=== PATIENT | male | born 1970 | race Two or more races ===

== ENCOUNTER 2025-05-26 11:37 | Inpatient (IN) | payer SELFPAY ==
[~2025-05-26] VITALS: Ht 170.2 cm; Wt 75.4 kg
[2025-05-26] VITALS (8 sets, daily range): BP systolic 117–130; BP diastolic 73–81; PULSE 61–84; RESP 14–18; TEMP 97.8–98.9; O2SAT 98–100
--- NOTE | 2025-05-26 12:33 | DVH ---
CHEST RADIOGRAPH Indication: weakness Technique: Single frontal view of the chest was obtained Comparison: None FINDINGS: Lines and Tubes: None Lungs: No focal consolidation. Pleura: No effusion. No pneumothorax. Cardiomediastinal contours: Unremarkable. Large hiatal hernia in the retrocardiac area with air-fluid level. Bones: No acute osseous abnormality. IMPRESSION: 1. No acute cardiopulmonary disease. 2. Large air-fluid level in the retrocardiac area most likely hiatal hernia.
--- NOTE | 2025-05-26 12:34 | ED.PDOC ---
History of Present Illness HPI Comments 54 year old male presents to the ED with a chief complaint of generalized weakness onset 1 month. Patient went to urgent care due to generalized weakness for the past month as well as dizziness, shortness of breath, was advised to come to ED due to hemoglobin level of 6. Patient states he experienced melena, now resolved. Denies chest pain, fever, chills, headache, blurred vision, nausea, vomiting, diarrhea, dysuria, hematuria. No other symptoms or modifying factors present at this time. Chief Complaint: General Weakness Time Seen by MD: 12:20 Reviewed Notes: Medications, Allergies Allergies: Coded Allergies: NO KNOWN ALLERGIES (Unverified , 05/26/25) Information Source: Patient Mode of Arrival: Ambulatory Severity: Moderate Timing: Months Duration: Since onset Prehospital treatment: None Past Medical History PAST MEDICAL HISTORY: Denies Surgical History: Denies all surgeries Family History Family History: Reviewed,noncontributory to illness, No family hx of Cancer, No family hx of DM, No family hx of Heart breanne, No family hx of HTN, No family hx ofKidney breanne, No family hx of Liver breanne, No family hx of Lung breanne, No family hx of Stroke Social History Smoker: Non-Smoker Alcohol: Denies ETOH Use Drugs: Denies Drug Use Lives In: Home Constitutional: reports: weakness; denies: chills, diaphoresis, fatigue, fever, malaise, sweats, others EENTM: denies: blurred vision, double vision, ear bleeding, ear discharge, ear drainage, ear pain, ear ringing, eye pain, eye redness, hearing loss, mouth pain, mouth swelling, nasal discharge, nose bleeding, nose congestion, nose pain, photophobia, tearing, throat pain, throat swelling, voice changes, others Respiratory: denies: cough, hemoptysis, orthopnea, SOB at rest, shortness of breath, SOB with excertion, stridor, wheezing, others Cardiovascular: denies: chest pain, dizzy spells, diaphoresis, Dyspnea on exertion, edema, irregular heart beat, left arm pain, lightheadedness, palpitations, PND, syncope, others Gastrointestinal: reports: melena; denies: abdomen distended, abdominal pain, blood streaked bowels, constipated, diarrhea, dysphagia, difficulty swallowing, hematemesis, nausea, poor appetite, poor fluid intake, rectal bleeding, rectal pain, vomiting, others Genitourinary: denies: burning, dysuria, flank pain, frequency, hematuria, incontinence, penile discharge, penile sore, pain, testicle pain, testicle swelling, urgency, others Neurological: reports: weakness; denies: dizziness, fainting, headache, left s ided numbness, left sided weakness, numbness, paresthesia, pre-existing deficit, right sided numbness, right sided weakness, seizure, speech problems, tingling, tremors, others Musculoskeletal: denies: back pain, gout, joint pain, joint swelling, muscle pain, muscle stiffness, neck pain, others Integumetry: denies: bruises, change in color, change in hair/nails, dryness, laceration, lesions, lumps, rash, wounds, others Allergic/Immunocompromised: denies: Difficulty Healing, Frequent Infections, Hives, Itching, others Hematologic/Lymphatic: denies: anemia, blood clots, easy bleeding, easy bruising, swollen glands, others Endocrine: denies: excessive hunger, excessive sweating, excessive thirst, excessive urination, flushing, intolerance to cold, intolerance to heat, unexplained weight gain, unexplained weight loss, others Psychiatric: denies: anxiety, bipolar disorder, depression, hopeless, panic disorder, schizophrenia, sleepless, suicidal, others All Other Systems: Reviewed and Negative Physical Exam General Appearance: No Apparent Distress, Normal HEENT: Normal ENT Inspection, Pharynx Normal, TMs Normal Neck: Full Range of Motion, Non-Tender, Normal, Normal Inspection Respiratory: Chest Non-Tender, Lungs Clear, No Accessory Muscle Use, No Respiratory Distress, Normal Breath Sounds Cardiovascular: No Edema, No JVD, No Murmur, No Gallop, Normal Peripheral Pulses, Regular Rate/Rhythm Breast Exam: Deferred Gastrointestinal: No Organomegaly, Non Tender, No Pulsatile Mass, Normal Bowel Sounds, Soft Genitalia: Deferred Pelvic: Deferred Rectal: Deferred Extremities: No calf tenderness, Normal capillary refill, Normal inspection, Normal range of motion, Non-tender, No pedal edema Musculoskeletal : Apperance: Normal Neurologic: Alert, technical marketing consultant II-XII nml as Tested, No Motor Deficits, Normal Affect, Normal Mood, No Sensory Deficits Cerebellar Function: Normal Reflexes: Normal Skin: Dry, Normal Color, Warm Lymphatic: No Adenopathy Was a procedure done? Was a procedure done?: No Differential Dx Considerations may include: ACS, CVA, viral syndrome, electrolyte abnormality, infectious etiology, symptomatic anemia X-Ray, Labs, Meds, VS Vital Signs Date Time Temp Pulse Resp B/P (MAP) Pulse Ox O2 Delivery O2 Flow Rate FiO2 05/26/25 13:00 71 16 135/80 (98) 100 05/26/25 13:00 71 16 100 Room Air* 0 21 05/26/25 12:26 90 116/80 05/26/25 12:25 87 119/82 05/26/25 12:24 90 18 116/80 (92) 100 05/26/25 12:24 90 18 100 Room Air 05/26/25 11:41 97.8 89 18 117/78 100 97.8 Lab Test 05/26/25 13:23 05/26/25 12:14 Range/Units Troponin I High Sensitivity < 3 L < 3 L </=54 ng/L White Blood Count 6.5 4.4-10.8 10^3/uL Red Blood Count 3.58 L 4.5-5.90 10^6/uL Hemoglobin 5.7 *L 13.5-17.5 g/dL Hematocrit 20.8 L 41.0-53.0 % Mean Corpuscular Volume 58.1 L 80.0-100.0 fL Mean Corpuscular Hemoglobin 15.9 L 28.0-32.0 pg Mean Corpuscular Hemoglobin Concent 27.4 L 32.0-36.0 g/dL Red Cell Distribution Width 20.5 H 11.8-14.3 % Platelet Count 452 H 140-450 10^3/uL Mean Platelet Volume 6.0 L 6.9-10.8 fL Neutrophils (%) (Auto) 64.1 37.0-80.0 % Lymphocytes (%) (Auto) 25.0 10.0-50.0 % Monocytes (%) (Auto) 7.7 0.0-12.0 % Eosinophils (%) (Auto) 1.6 0.0-7.0 % Basophils (%) (Auto) 1.6 0.0-2.0 % Neutrophils # (Auto) 4.2 1.6-8.6 10 ^3/uL Lymphocytes # (Auto) 1.6 0.4-5.4 10 ^3/uL Monocytes # (Auto) 0.5 0-1.3 10 ^3/uL Eosinophils # (Auto) 0.1 0-0.8 10 ^3/uL Basophils # (Auto) 0.1 0-0.2 10 ^3/uL Nucleated Red Blood Cells 0.3 % Platelet Estimate Increased Hypochromasia (manual) Marked Anisocytosis (manual) Slight Microcytosis Marked Sodium Level 139 136-145 mmol/L Potassium Level 4.4 3.5-5.1 mmol/L Chloride Level 105 98-107 mmol/L Carbon Dioxide Level 23 20-31 mmol/L Anion Gap 11 5-15 Blood Urea Nitrogen 18 9-23 mg/dL Creatinine 1.09 0.700-1.30 mg/dL Glomerular Filtration Rate Calc 81 >90 mL/min BUN/Creatinine Ratio 16.5 10.0-20.0 Serum Glucose 106 74-106 mg/dL Calcium Level 8.8 8.7-10.4 mg/dL Time of 1ST Reevaluation: 12:50 Reevaluation 1ST: Unchanged Patient Education/Counseling: Diagnosis, Treatment, Prognosis Family Education/Counseling: No Family Present SEPSIS Sepsis Screen Date sepsis recognized/suspect: May 26, 2025 Time Sepsis recognized/suspect: 1143 Recent Procedure: No On Antibiotic Therapy: No Respiratory Rate >20: No Heart Rate >90: No Temp<36 C (96.8 F) or >38.3 C: No SBP <90 or MAP <65 mmHG: No New Acute Mental Status Change: No Is the patient on CPAP, BIPAP,: No Physician Orders Urinalysis (05/26/25 11:59) Chest Portable (05/26/25 11:59) Electrocardigram (05/26/25 11:59) Troponin-I Hs (05/26/25 14:59) Electrocardigram (05/26/25 12:59) Electrocardigram (05/26/25 14:59) Vital Signs Date Time Temp Pulse Resp B/P (MAP) Pulse Ox O2 Delivery O2 Flow Rate FiO2 05/26/25 13:00 71 16 135/80 (98) 100 05/26/25 13:00 71 16 100 Room Air* 0 21 05/26/25 12:26 90 116/80 05/26/25 12:25 87 119/82 05/26/25 12:24 90 18 116/80 (92) 100 05/26/25 12:24 90 18 100 Room Air 05/26/25 11:41 97.8 89 18 117/78 100 97.8 Laboratory Tests Test 05/26/25 12:14 White Blood Count 6.5 10^3/uL (4.4-10.8) Departure 1 Departure Time of Disposition: 14:11 (Patient with near-syncope likely secondary to low hemoglobin. We will transfuse the patient admit patient for further workup and expert consultation) Impression: Primary Impression: Symptomatic anemia Additional Impression: Near syncope Disposition: ADMITTED INPATIENT Admit to: Tele Condition: Guarded Critical Care Note Critical Care Time?: Yes Critical care comment: Near-syncope and symptomatic anemia Authorized and Performed by: Ronit Bhagat MD Total critical care time: Approximately 37 minutes Due to a high probability of clinically significant, life threatening deterioration, the patient required my highest level of preparedness to intervene emergently and I personally spent this critical care time directly and personally managing the patient. This critical care time included obtaining a history; examining the patient; pulse oximetry; ordering and review of studies; arranging urgent treatment with development of a management plan; evaluation of patient's response to treatment; frequent reassessment; and, discussions with other providers. This critical care time was performed to assess and manage the high probability of imminent, life-threatening deterioration that could result in multi-organ failure. It was exclusive of separately billable procedures and treating other patients and teaching time. Please see my other sections and the rest of the note for further information on patient assessment and treatment. Stability Stability form required: No Heart Score Heart Score: Heart Score Response (Comments) Value History N/A 0 EKG N/A 0 Age N/A 0 Risk Factors N/A 0 Troponin N/A 0 Total 0 I personally scribed for RONIT BHAGAT MD ([email or web address]) on 05/26/25 at 12:34. Electronically submitted by Zofia Bernstein ([email or web address]). RONIT BHAGAT MD May 26, 2025 12:34
[2025-05-26 12:42] LABS: Hematocrit 20.8 % (41.0-53.0); Mean Corpuscular Hemoglobin 15.9 pg (28.0-32.0)
[2025-05-26 12:46] LABS: Chloride 105 mmol/L (98-107); Mean Corpuscular Volume 58.1 fL (80.0-100.0); Nucleated Red Blood Cells % 0.3 %; Potassium 4.4 mmol/L (3.5-5.1); Sodium 139 mmol/L (136-145)
[2025-05-26 12:47] LABS: Anion Gap 11 (5-15); Carbon Dioxide 23 mmol/L (20-31)
[2025-05-26 12:48] LABS: Calcium 8.8 mg/dL (8.7-10.4)
[2025-05-26 12:50] LABS: Hemoglobin 5.7 g/dL (13.5-17.5)
[2025-05-26 12:53] LABS: BUN/Creatinine Ratio 16.5 (10.0-20.0); Blood Urea Nitrogen 18 mg/dL (9-23)
[2025-05-26 12:56] LABS: Glucose 106 mg/dL (74-106)
[2025-05-26 13:10] LABS: Anisocytosis Slight
[2025-05-26] MEDS: IOHEXOL 300 MG/ML 100ML BOTTLE IJ ONE (14:18)
--- NOTE | 2025-05-26 15:12 | DVH ---
EXAM: CT CT AB PEL WITH IV CON ONLY HISTORY: c/f gi bleed TECHNIQUE: Volumetric multidetector CT images of the abdomen and pelvis were obtained after the administration of intravenous contrast. All CT scans at this facility use dose modulation, iterative reconstruction, and/or weight based dosing when appropriate to reduce radiation dose to as low as reasonably achievable. COMPARISON: XY CHEST PORTABLE on DOS: 05/26/25 FINDINGS: [LOWER CHEST]: The partially visualized lung bases are clear without a pleural effusion. [LIVER]: Hepatomegaly. [GALLBLADDER AND BILIARY TREE]: No cholelithiasis. [SPLEEN]: Unremarkable. [PANCREAS]: Unremarkable. [ADRENAL GLANDS]: Unremarkable [KIDNEYS]: No hydronephrosis. No nephroureterolithiasis. No suspicious focal lesion. [BLADDER]: Circumferential bladder wall thickening, which may be seen in the setting of acute versus chronic cystitis and correlate with urinalysis. [REPRODUCTIVE ORGANS]: Unremarkable. [BOWEL/MESENTERY]: Large hiatal hernia. Presumed underlying gastritis. No CT evidence of bowel obstruction. prior appendectomy. Mild stool burden. [ASCITES]: Absent [LYMPHADENOPATHY]: No pathologically enlarged lymph nodes by CT size criteria [VASCULATURE]: No aneurysmal dilatation. [ABDOMINAL WALL]: Unremarkable. [MUSCULOSKELETAL]: No acute fracture or aggressive focal osseous lesion. IMPRESSION: 1. Circumferential bladder wall thickening and correlate with urinalysis for underlying acute versus chronic cystitis. 2. Large hiatal hernia with presumed underlying gastritis.
--- NOTE | 2025-05-26 16:58 | ECG ---
[facility] Test Date: 2025-05-26 Test Time: 15:17:00 Pat Name: RY ARCINIEGA Department: ED Room: Gender: M Crossing Supervisor: dominic : 1970 Requested By: RONIT KAMARA Order Number: [id number] Reading MD: Measurements Intervals [place] Rate: 64 P: 4 SD: 211 QRS: 2 QRSD: 107 T: 14 QT: 441 QTc: 455 Interpretive Statements Sinus rhythm Prolonged SD interval Please click the below link to view image of tracing.
--- NOTE | 2025-05-26 18:44 | ECG ---
[facility] Test Date: 2025-05-26 Test Time: 18:07:04 Pat Name: RY ARCINIEGA Department: ED Room: Gender: M Fashion Stylist: dominic : 1970 Requested By: RONIT KAMARA Order Number: [id number] Reading MD: Measurements Intervals [place] Rate: 72 P: 23 TX: 207 QRS: 2 QRSD: 96 T: 18 QT: 419 QTc: 459 Interpretive Statements Sinus rhythm Borderline prolonged TX interval ST elev, probable normal early repol pattern Please click the below link to view image of tracing.
[2025-05-26] MEDS ORDERED: ONDANSETRON HCL 4 MG/2 ML VIAL IV PRN (19:30)
[2025-05-26 20:10] LABS: INR 1.01 (0.9-1.15); Partial Thromboplastin Time 24.2 SEC (24.5-34.5); Prothrombin Time 10.7 sec (9.3-11.8)
[2025-05-26] MEDS: PANTOPRAZOLE 40 MG/10 ML VIAL INJ IV ONE (20:33)
--- NOTE | 2025-05-26 21:20 | DVHHP2 ---
History of Present Illness Reason for Visit: Shortness for breath History of Present Illness 54-year-old male presents for evaluation of shortness for breath. Patient reports a one week history of worsening shortness for breath with associated dizziness, chest pressure and pale skin. He was seen at urgent care today and was advised to present to the emergency department due to a hemoglobin level of 6.5. He reports that three weeks ago he had an episode of dark colored stool which subsided. Patient is currently not taking any medications. No other acute complaints reported Past Medical History Anemia Past Surgical History Denies Family History Noncontributory Smoke: No ALCOHOL: none Drugs: None Lives: with Family Review of Systems Review of Systems Review of systems are currently negative otherwise addressed in HPI. Allergies: Coded Allergies: NO KNOWN ALLERGIES (Unverified , 05/26/25) Medications Current Medications Medications Dose Ordered Sig/Rachel Route Start Time Stop Time Status Last Admin Dose Admin Pantoprazole Sodium 40 mg DAILY IV 05/27/25 10:00 Ondansetron HCl 4 mg Q4HP PRN IV 05/26/25 19:30 Exam Vital Signs Vital Signs Date Time Temp Pulse Resp B/P (MAP) Pulse Ox O2 Delivery O2 Flow Rate FiO2 05/26/25 20:52 99.2 88 16 145/82 (103) 98 99.2 05/26/25 19:55 Room Air* 0 21 Exam Gen: 54-year-old male in mild distress Skin: Warm, dry, pale, no rash. HEENT: Normocephalic atraumatic, mucous membranes moist and pink. Neck: Cervical and supraclavicular nodes normal without enlargement, trachea is midline, thyroid gland is normal without masses. Pulmonary: Clear to auscultation and percussion bilaterally. Cardiac: Regular rate and rhythm. No murmur Abdomen: Soft, nontender, nondistended, bowel sounds present all 4 quadrants, no guarding, no rigidity, no organomegaly. Extremities: No cyanosis, clubbing, no edema Neuro: Cranial nerves II through XII grossly intact, normal affect and speech, no focal motor deficits. Labs/Xrays ORDERING PHYSICIAN: RONIT KAMARA MD PROCEDURE(s): CXRP - CHEST PORTABLE REASON: weakness ORDER NUMBER(s): [id number], ACCESSION NUMBER(s): [id number] CHEST RADIOGRAPH Indication: weakness Technique: Single frontal view of the chest was obtained Comparison: None FINDINGS: Lines and Tubes: None Lungs: No focal consolidation. Pleura: No effusion. No pneumothorax. Cardiomediastinal contours: Unremarkable. Large hiatal hernia in the retrocar diac area with air-fluid level. Bones: No acute osseous abnormality. IMPRESSION: 1. No acute cardiopulmonary disease. 2. Large air-fluid level in the retrocardiac area most likely hiatal hernia. RING PHYSICIAN: RONIT KAMARA MD PROCEDURE(s): ABPLIV - CT AB PEL WITH IV CON ONLY REASON: c/f gi bleed ORDER NUMBER(s): [id number], ACCESSION NUMBER(s): [id number] EXAM: CT CT AB PEL WITH IV CON ONLY HISTORY: c/f gi bleed TECHNIQUE: Volumetric multidetector CT images of the abdomen and pelvis were obt ained after the administration of intravenous contrast. All CT scans at this facility use dose modulation, iterative reconstruction, and/or weight based dosing when appropriate to reduce radiation dose to as low as reasonably achievable. COMPARISON: XY CHEST PORTABLE on DOS: 05/26/25 FINDINGS: [LOWER CHEST]: The partially visualized lung bases are clear without a pleural effusion. [LIVER]: Hepatomegaly. [GALLBLADDER AND BILIARY TREE]: No cholelithiasis. [SPLEEN]: Unremarkable. [PANCREAS]: Unremarkable. [ADRENAL GLANDS]: Unremarkable [KIDNEYS]: No hydronephrosis. No nephroureterolithiasis. No suspicious focal lesion. [BLADDER]: Circumferential bladder wall thickening, which may be seen in the setting of acute versus chronic cystitis and correlate with urinalysis. [REPRODUCTIVE ORGANS]: Unremarkable. [BOWEL/MESENTERY]: Large hiatal hernia. Presumed underlying gastritis. No CT evidence of bowel obstruction. prior appendectomy. Mild stool burden. [ASCITES]: Absent [LYMPHADENOPATHY]: No pathologically enlarged lymph nodes by CT size criteria [VASCULATURE]: No aneurysmal dilatation. [ABDOMINAL WALL]: Unremarkable. [MUSCULOSKELETAL]: No acute fracture or aggressive focal osseous lesion. IMPRESSION: 1. Circumferential bladder wall thickening and correlate with urinalysis for underlying acute versus chronic cystitis. 2. Large hiatal hernia with presumed underlying gastritis. ATED BY: ADRIEL PEREZ MD DICTATED DATE/TIME: 05/26/25 1510 Labs Test 05/26/25 19:42 05/26/25 15:02 05/26/25 12:14 Range/Units Prothrombin Time 10.7 9.3-11.8 sec Prothrombin Time INR 1.01 0.9-1.15 Activated Partial Thromboplast Time 24.2 L 24.5-34.5 SEC Troponin I High Sensitivity < 3 L </=54 ng/L White Blood Count 6.5 4.4-10.8 10^3/uL Red Blood Count 3.58 L 4.5-5.90 10^6/uL Hemoglobin 5.7 *L 13.5-17.5 g/dL Hematocrit 20.8 L 41.0-53.0 % Mean Corpuscular Volume 58.1 L 80.0-100.0 fL Mean Corpuscular Hemoglobin 15.9 L 28.0-32.0 pg Mean Corpuscular Hemoglobin Concent 27.4 L 32.0-36.0 g/dL Red Cell Distribution Width 20.5 H 11.8-14.3 % Platelet Count 452 H 140-450 10^3/uL Mean Platelet Volume 6.0 L 6.9-10.8 fL Neutrophils (%) (Auto) 64.1 37.0-80.0 % Lymphocytes (%) (Auto) 25.0 10.0-50.0 % Monocytes (%) (Auto) 7.7 0.0-12.0 % Eosinophils (%) (Auto) 1.6 0.0-7.0 % Basophils (%) (Auto) 1.6 0.0-2.0 % Neutrophils # (Auto) 4.2 1.6-8.6 10 ^3/uL Lymphocytes # (Auto) 1.6 0.4-5.4 10 ^3/uL Monocytes # (Auto) 0.5 0-1.3 10 ^3/uL Eosinophils # (Auto) 0.1 0-0.8 10 ^3/uL Basophils # (Auto) 0.1 0-0.2 10 ^3/uL Nucleated Red Blood Cells 0.3 % Platelet Estimate Increased Hypochromasia (manual) Marked Anisocytosis (manual) Slight Microcytosis Marked Sodium Level 139 136-145 mmol/L Potassium Level 4.4 3.5-5.1 mmol/L Chloride Level 105 98-107 mmol/L Carbon Dioxide Level 23 20-31 mmol/L Anion Gap 11 5-15 Blood Urea Nitrogen 18 9-23 mg/dL Creatinine 1.09 0.700-1.30 mg/dL Glomerular Filtration Rate Calc 81 >90 mL/min BUN/Creatinine Ratio 16.5 10.0-20.0 Serum Glucose 106 74-106 mg/dL Calcium Level 8.8 8.7-10.4 mg/dL SEPSIS Sepsis Screen Date sepsis recognized/suspect: May 26, 2025 Time Sepsis recognized/suspect: 1929 Recent Procedure: No On Antibiotic Therapy: No Respiratory Rate >20: No Heart Rate >90: No Temp<36 C (96.8 F) or >38.3 C: No SBP <90 or MAP <65 mmHG: No New Acute Mental Status Change: No Is the patient on CPAP, BIPAP,: No Physician Orders Type And Screen (05/26/25 14:09) Ct Ab Pel With Iv Con Only (05/26/25 14:09) Stool Occult Blood (05/26/25 19:27) Gastric Occult Blood (05/26/25 19:27) Pantoprazole (Protonix) (05/27/25 10:00) * Gi [facility] Switchboard Operator Receptionist (05/26/25 19:27) Admit (05/26/25 19:27) Ondansetron Hcl (Zofran) (05/26/25 19:30) Complete Blood Count (05/27/25 04:00) Comprehensive Metabolic Panel (05/27/25 04:00) Condition: Stable (05/26/25 19:27) Clear Liq Diet (05/27/25 Breakfast) Bedrest With Bathroom Privileg (05/26/25 19:27) Vital Signs Date Time Temp Pulse Resp B/P (MAP) Pulse Ox O2 Delivery O2 Flow Rate FiO2 05/26/25 20:52 99.2 88 16 145/82 (103) 98 99.2 05/26/25 19:55 84 14 99 Room Air* 0 21 05/26/25 19:10 99.2 84 16 108/67 (81) 99 99.2 05/26/25 18:29 98.9 67 16 117/74 98.9 05/26/25 18:00 70 16 119/70 (86) 100 05/26/25 16:08 97.8 77 17 127/76 97.8 05/26/25 15:40 98.0 78 19 130/81 (97) 100 98.0 05/26/25 15:40 98.0 78 17 130/81 98.0 05/26/25 15:17 64 05/26/25 15:00 61 17 125/76 (92) 100 05/26/25 14:17 67 Laboratory Tests Test 05/26/25 12:14 White Blood Count 6.5 10^3/uL (4.4-10.8) Medications Medications Dose Ordered Sig/Rachel Route Start Time Stop Time Status Last Admin Dose Admin Pantoprazole Sodium 40 mg ONCE ONCE IV 05/26/25 19:30 05/26/25 19:40 DC 05/26/25 20:33 40 MG Assessment/Plan Assessment/Plan Assessment Symptomatic anemia Plan Admit the patient to [facility] to the hospitalist Transfuse 2 units of packed red cells GI consultation Continue treatment per orders. Plan discussed with: Patient My Orders Orders - J CARLOS SCOTT Procedure Category Date Status Time Stool Occult Blood LAB 05/26/25 Logged 19:27 Gastric Occult Blood LAB 05/26/25 Logged 19:27 Pantoprazole PHA 05/27/25 In Process (Protonix) 10:00 * Gi [facility] Switchboard Operator Receptionist CONS 05/26/25 Transmitted 19:27 Admit ADMIT 05/26/25 Transmitted 19:27 Ondansetron Hcl PHA 05/26/25 In Process (Zofran) 19:30 Complete Blood Count LAB 05/27/25 Verified 04:00 Comprehensive LAB 05/27/25 Verified Metabolic Panel 04:00 Condition: Stable GIDEON 05/26/25 In Process 19:27 Clear Liq Diet DIET 05/27/25 Transmitted Breakfast Bedrest With Bathroom GIDEON 05/26/25 In Process Privileg 19:27 Date of Service: May 26, 2025 Billing Provider: J CARLOS SCOTT Common Visit Codes: [id number] INP/OBS CARE (HIGH) J CARLOS SCOTT May 26, 2025 21:20
[2025-05-26 21:43] LABS: Total Iron Binding Capacity 340.0 ug/dL (250-425)
[2025-05-26 21:50] LABS: Iron 11.0 ug/dL (65-175)
[2025-05-26] MEDS ORDERED: PANT40TA2 PO (23:17)
--- NOTE | 2025-05-26 23:17 | ECG ---
[facility] Test Date: 2025-05-26 Test Time: 14:17:40 Pat Name: RY ARCINIEGA Department: [facility] ED Patient ID: [id number] Room: 0217 Gender: M Solution Engineer: dominic : 1970 Requested By: RONIT KAMARA Order Number: [id number] Reading MD: Measurements Intervals [place] Rate: 67 P: 20 DC: 213 QRS: 13 QRSD: 108 T: 25 QT: 444 QTc: 469 Interpretive Statements Sinus rhythm Prolonged DC interval ST elev, probable normal early repol pattern Please click the below link to view image of tracing.
[2025-05-27] VITALS (10 sets, daily range): BP systolic 113–130; BP diastolic 71–89; PULSE 54–75; RESP 14–18; TEMP 97.7–98.3; O2SAT 97–100
[2025-05-27 06:05] LABS: Hematocrit 21.3 % (41.0-53.0); Mean Corpuscular Hemoglobin 18.2 pg (28.0-32.0); Mean Corpuscular Volume 61.1 fL (80.0-100.0); Nucleated Red Blood Cells % 0.3 %
[2025-05-27 06:17] LABS: Hemoglobin 6.3 g/dL (13.5-17.5)
[2025-05-27 06:31] LABS: Alanine Aminotransferase 14 U/L (7-40); Albumin 4.1 g/dL (3.2-4.8); Alkaline Phosphatase 72 U/L (46-116); Anion Gap 10 (5-15); BUN/Creatinine Ratio 14.3 (10.0-20.0); Blood Urea Nitrogen 15 mg/dL (9-23); Calcium 8.9 mg/dL (8.7-10.4); Carbon Dioxide 24 mmol/L (20-31); Chloride 107 mmol/L (98-107); Glucose 91 mg/dL (74-106); Potassium 4.1 mmol/L (3.5-5.1); Sodium 141 mmol/L (136-145); Total Protein 7.0 g/dL (5.7-8.2)
[2025-05-27 06:32] LABS: Bilirubin, Total 0.6 mg/dL (0.2-1.0)
[2025-05-27] MEDS: PANTOPRAZOLE 40 MG/10 ML VIAL INJ IV SCH ×2 (09:10→21:47)
[2025-05-27 10:23] LABS: Urine Protein, UAD Negative (Negative)
--- NOTE | 2025-05-27 11:39 | DVHPN2 ---
Reviewed: H&P Changes from previous H/P or p: No Changes General: Per HPI Objective Vitals Vital Signs Date Time Temp Pulse Resp B/P (MAP) Pulse Ox O2 Delivery O2 Flow Rate FiO2 05/27/25 09:00 98.3 69 17 122/82 (95) 97 98.3 05/27/25 08:00 Room Air* 0 21 Intake/Output Intake and Output 05/27/25 07:00 Intake Total 1050 ml Output Total 0 ml Balance 1050 ml Intake Oral 150 ml Blood Product 600 ml Other 300 ml Output Urine Total 0 ml # Voids 1 Exam GEN: Healthy appearing, well-developed, NAD. HEENT: NC/AT; MMM. CV: RRR, no m/r/g. LUNGS: CTAB, no w/r/c. ABD: Soft, NT/ND, NBS, no masses or organomegaly. EXT: skin Warm, well perfused. no rashes. No clubbing, cyanosis, or edema. NEURO: Ambulating with no limitations. No focal deficits. Medications Current Medications Medications Dose Ordered Sig/Rachel Route Start Time Stop Time Status Last Admin Dose Admin Pantoprazole Sodium 40 mg DAILY IV 05/27/25 10:00 05/27/25 09:10 40 MG Ondansetron HCl 4 mg Q4HP PRN IV 05/26/25 19:30 Laboratory Results Laboratory Tests 05/27/25 05:01 Chemistry Test 05/26/25 12:14 05/27/25 05:01 Calcium Level 8.8 mg/dL (8.7-10.4) 8.9 mg/dL (8.7-10.4) Albumin 4.1 g/dL (3.2-4.8) Total Protein 7.0 g/dL (5.7-8.2) Coagulation Test 05/26/25 19:42 Prothrombin Time 10.7 sec (9.3-11.8) Prothrombin Time INR 1.01 (0.9-1.15) Activated Partial Thromboplast Time 24.2 SEC (24.5-34.5) L LFT Test 05/27/25 05:01 Alanine Aminotransferase (ALT) 14 U/L (7-40) Alkaline Phosphatase 72 U/L (46-116) Aspartate Amino Transferase (AST) 13 U/L (13-40) Total Bilirubin 0.6 mg/dL (0.2-1.0) Urinalysis Test 05/27/25 10:04 Urine Color Light-orange (Yellow) Urine Clarity Clear (Clear) Urine pH 6.0 (5.0-9.0) Urine Specific [place] 1.031 (1.001-1.035) Urine Protein Negative (Negative) Urine Ketones Negative (Negative) Urine Blood Negative /uL (Negative) Urine Nitrite Negative (Negative) Urine Bilirubin Negative (Negative) Urine Urobilinogen Normal mg/dL (Negative) Urine Leukocyte Esterase Negative /uL (Negative) Urine RBC 1 /hpf (0 - 3) Urine Microscopic WBC 1 /HPF (0-3) Urine Squamous Epithelial Cells None seen /hpf (<5) Urine Bacteria None seen /hpf (None Seen) Urine Mucus Few (None Seen) Urine Glucose Normal mg/dL (Normal) Labs and/or images reviewed: Labs reviewed by me, Image(s) reviewed by me Assessment/Plan Assessment/Plan 54-year-old male presents for evaluation of shortness for breath. Patient reports a one week history of worsening shortness for breath with associated dizziness, chest pressure and pale skin. He was seen at urgent care today and was advised to present to the emergency department due to a hemoglobin level of 6.5. He reports that three weeks ago he had an episode of dark colored stool which subsided. Patient is currently not taking any medications. No other acute complaints reported Past Medical History Anemia 05/27: Patient came in with dizziness, was recently in urgent Care found to be anemic. In ED hemoglobin 5.7. Pending stool occult blood, ferritin 11 severely low, we will give Venofer, p.o. ferrous sulfate thereafter. GI consulted. Continue Protonix IV 40 b.i.d., GI to follow up,. Patient getting 2 units blood we will follow up with the hemoglobin thereafter. GI see the patient, to EGD today.. Patient for care consult for. Insurance. Defer diet after procedure to GI, we will continue follow up thereafter. Diagnosis: Acute blood loss anemia Severe anemia Iron-deficiency anemia Plan: Two large bore IV access Type and cross H&H b.i.d. PPI IV b.i.d. GI consult EGD planned Continue other medications IV iron Folate IV, then p.o. NPO Med surge Full code Plan discussed with: Patient My Orders Orders - XAVIER INFANTE MD Procedure Category Date Status Time Folic Acid Ivpb PHA 05/27/25 Transmitted 11:45 Folic Acid Tablet PHA 05/28/25 Transmitted 10:00 Iron Ivpb PHA 05/27/25 Transmitted 12:00 Ferrous Sulfate Tablet PHA 05/28/25 Transmitted 10:00 Date of Service: May 27, 2025 Billing Provider: XAVIER INFANTE MD Common Visit Codes: [id number] INP/OBS CARE(HIGH) XAVIER INFANTE MD May 27, 2025 11:39
[2025-05-27] MEDS ORDERED: fentaNYL CITRATE 100 MCG/2 ML VL ONE (14:20)
[2025-05-27] MEDS ORDERED: MIDAZOLAM HCL 2MG/2ML 2ml VIAL (1mg/ml) ONE (14:20)
[2025-05-27] MEDS ORDERED: PROPOFOL 10 MG/ML 20 ML IV ONE (14:34)
--- NOTE | 2025-05-27 14:35 | DVHOP2 ---
Operative Report DATE OF OPERATION: 05/27/25 PROCEDURE: Upper Endoscopy with biopsy. PREOPERATIVE INDICATION: The patient is a 54 -year-old male undergoing endoscopy for anemia and a large hiatal hernia POSTOPERATIVE DIAGNOSES: 1. Patient had a large 8-10 cm sliding-type hiatal hernia with paraesophageal component and some superficial gastritis within the hiatal hernia sac 2. [id number] candidal esophagitis 3. Otherwise normal examination up to the 2nd and 3rd part of the duodenum with no active bleeding and good bile drainage PROCEDURE PERFORMED BY: Marielos Hughes GI NURSE: Mari SCOPE: Olympus videoendoscope. ASA CLASS: 3 PREOPERATIVE MEDICATIONS: Mac sedation, Dr. Gerber PROCEDURE IN DETAIL: After obtaining an informed consent, the patient was placed on left lateral decubitus position. The patient was then sedated with the above medications. A bite block was placed between his teeth. The endoscope was then passed through the oropharynx, into the esophagus, and through the stomach and pylorus up to the second and third part of the duodenum. The endoscope was then withdrawn. The 2nd and 3rd part of the duodenum and the duodenal bulb were normal. Duodenal biopsies were obtained The pre-pyloric area antrum and body showed minimal gastritis. Gastric biopsies were obtained. On retroflexion and straight on view the patient had large 8-10 cm sliding-type hiatal hernia with paraesophageal component. There was mild gastritis within the hiatal hernia sac. There was no fresh or old blood in the upper GI tract and no active ulceration The endoscope was then withdrawn into distal esophagus where the patient had [id number] candidal esophagitis with yellowish whitish plaques throughout the length of the esophagus Esophageal biopsies were obtained. The remaining proximal esophagus and oropharynx were unremarkable The patient tolerated the procedure well without difficulty. COMPLICATIONS : None SPECIMENS: Duodenal biopsies Gastric biopsies Esophageal biopsies DISPOSITION: Transfer back to the floor State PLAN: 1. Await for biopsy result 2. Protonix 40 mg IV q.12 hours and maintained on oral PPI upon discharge 3. Nystatin swish and swallow 5 mL p.o. q.i.d. and maintained on this for two weeks after discharge 4. Start with full liquid diet advance to soft mechanical 5. DC aspirin NSAIDs smoking alcohol 6. The large hiatal hernia could be the cause of iron-deficiency anemia 7. Outpatient follow up with GI Services to schedule elective colonoscopy for colon cancer screening, patient is refusing colonoscopy at this time MARIELOS HUGHES MD May 27, 2025 14:35
[2025-05-27] MEDS: IRON SUCROSE COMPLEX 110 ML IV SCH (16:01)
[2025-05-27 16:50] LABS: Hematocrit 24.1 % (41.0-53.0); Hemoglobin 7.2 g/dL (13.5-17.5)
[2025-05-27] MEDS: NYSTATIN (MOUTH-THROAT) 500,000 UNITS/5 ML SUSP MT SCH (17:13)
[2025-05-27] MEDS: SUCRALFATE 1 GM/10 ML ORAL SUSP PO SCH (17:14)
[2025-05-27] MEDS: FOLIC ACID 1 MG in D5W 5% 50 ML INJ ONE (17:15)
[2025-05-28 01:00] VITALS: BP 119/78; PULSE 61; RESP 16; TEMP 97.9; O2SAT 99
[2025-05-28 05:00] VITALS: BP 112/74; PULSE 60; RESP 16; TEMP 97.9; O2SAT 99
[2025-05-28 05:59] LABS: Hematocrit 23.5 % (41.0-53.0); Hemoglobin 7.2 g/dL (13.5-17.5); Mean Corpuscular Hemoglobin 19.5 pg (28.0-32.0); Mean Corpuscular Volume 63.7 fL (80.0-100.0); Nucleated Red Blood Cells % 0.2 %
[2025-05-28 06:21] LABS: Chloride 105 mmol/L (98-107); Potassium 4.0 mmol/L (3.5-5.1); Sodium 139 mmol/L (136-145)
[2025-05-28 06:22] LABS: Anion Gap 10 (5-15); Carbon Dioxide 24 mmol/L (20-31)
[2025-05-28 06:23] LABS: Calcium 9.3 mg/dL (8.7-10.4)
[2025-05-28 06:30] LABS: BUN/Creatinine Ratio 12.9 (10.0-20.0); Blood Urea Nitrogen 12 mg/dL (9-23); Glucose 107 mg/dL (74-106)
[2025-05-28 07:02] LABS: Anisocytosis Marked; Polychromasia Slight
[2025-05-28 08:00] VITALS: PULSE 58; RESP 17; O2SAT 100
[2025-05-28 09:00] VITALS: BP 120/71; PULSE 58; RESP 17; TEMP 98.3; O2SAT 100
[2025-05-28] MEDS: FERROUS SULFATE 325mg EC TAB PO SCH (09:18)
[2025-05-28] MEDS: FOLIC ACID 1 MG TAB PO SCH (09:18)
--- NOTE | 2025-05-28 10:05 | DVHPN2 ---
Progress Note - Dictate Date Seen: May 28, 2025 Medical Necessity Reason Pt with a Central, PICC or Fol: No Subjective No new complaints Tolerating full liquid diet EGD findings discussed with patient Patient has a large 8-10 cm sliding-type hiatal hernia with paraesophageal component vital signs Vital Sign Date Time Temp Pulse Resp B/P (MAP) Pulse Ox O2 Delivery O2 Flow Rate FiO2 05/28/25 09:00 98.3 58 17 120/71 (87) 100 98.3 05/27/25 20:00 Room Air* 0 21 Total Intake and Output 05/27/25 05/27/25 05/28/25 15:00 23:00 07:00 Intake Total 940 ml 1080 ml 100 ml Output Total 1 ml Balance 940 ml 1079 ml 100 ml medications Current Medications Medications Dose Ordered Sig/Rachel Route Start Time Stop Time Status Last Admin Dose Admin Ondansetron HCl 4 mg Q4HP PRN IV 05/26/25 19:30 Folic Acid 1 mg DAILY PO 05/28/25 10:00 05/28/25 09:18 1 MG Iron Sucrose 110 ml @ 110 mls/hr DAILY@1200 IV 05/27/25 12:00 05/28/25 12:59 05/27/25 16:01 110 MLS/HR Ferrous Sulfate 325 mg EOD PO 05/28/25 10:00 05/28/25 09:18 325 MG Pantoprazole Sodium 40 mg BID IV 05/27/25 22:00 05/28/25 09:17 40 MG Nystatin 5 ml QID MT 05/27/25 18:00 05/28/25 05:23 5 ML Sucralfate 1 gm QID@0600,1130,1700,2200 PO 05/27/25 17:00 05/28/25 05:23 1 GM objective Gen: 54-year-old male in mild distress Skin: Warm, dry, pale, no rash. HEENT: Normocephalic atraumatic, mucous membranes moist and pink. Neck: Cervical and supraclavicular nodes normal without enlargement, trachea is midline, thyroid gland is normal without masses. Pulmonary: Clear to auscultation and percussion bilaterally. Cardiac: Regular rate and rhythm. No murmur Abdomen: Soft, nontender, nondistended, bowel sounds present all 4 quadrants, no guarding, no rigidity, no organomegaly. Extremities: No cyanosis, clubbing, no edema Neuro: Cranial nerves II through XII grossly intact, normal affect and speech, no focal motor deficits. laboratory and microbiology Laboratory Tests 05/28/25 05:03 Test 05/28/25 05:03 Range/Units Serum Glucose 107 H 74-106 mg/dL Problems(with codes): (1) Large hiatal hernia (2) Symptomatic anemia (3) Near syncope Prognosis Plan Advance to soft mechanical diet Maintained long-term on PPI with Prilosec 20 mg p.o. daily Iron supplements p.o. upon discharge Patient is getting IV iron DC aspirin NSAIDs ibuprofen Outpatient follow up with me to discuss outpatient elective screening colonoscopy Patient was also given the option of a possible elective Rufina fundoplication in the future Plan discussed with: Patient, Spouse, Other (Nurse) CC Plasma Assessment Blood Product Administration S: [id number] MARIELOS JAIMES MD May 28, 2025 10:05
--- NOTE | 2025-05-28 10:08 | DVHINCON2 ---
Date of service: May 27, 2025 (12 noonLate entry) Referring Physician Dr Oh Reason for Consultation Severe microcytic anemia History of Present Illness 54-year-old male presents for evaluation of shortness for breath. Patient reports a one week history of worsening shortness for breath with associated dizziness, chest pressure and pale skin. He was seen at urgent care today and was advised to present to the emergency department due to a hemoglobin level of 6.5. He reports that three weeks ago he had an episode of dark colored stool which subsided. He had taken some ibuprofen at that time. Patient is currently not taking any medications. No other acute complaints reported Past Medical History Past Medical History Anemia Family History: Osteoporosis G8 MOTHER Allergies: Coded Allergies: NO KNOWN ALLERGIES (Unverified , 05/26/25) Home Meds Reported Medications Pantoprazole Sodium Sesquihydr (Protonix) 40 Mg Tab, 40 MG PO DAILY, #30 TAB 05/26/25 Current Medications Current Medications Medications (Trade) Dose Ordered Sig/Rachel Route PRN Reason Start Time Stop Time Status Last Admin Folic Acid 1 mg DAILY PO 05/28/25 10:00 05/28/25 09:18 Iron Sucrose 110 ml @ 110 mls/hr DAILY@1200 IV 05/27/25 12:00 05/28/25 12:59 05/27/25 16:01 Ferrous Sulfate 325 mg EOD PO 05/28/25 10:00 05/28/25 09:18 Pantoprazole Sodium (Protonix) 40 mg BID IV 05/27/25 22:00 05/28/25 09:17 Nystatin (Mycostatin (Mouth-Throat)) 5 ml QID MT 05/27/25 18:00 05/28/25 05:23 Sucralfate (Carafate Susp) 1 gm QID@0600,1130,1700,2200 PO 05/27/25 17:00 05/28/25 05:23 Vital Signs Vital Signs Date Time Temp Pulse Resp B/P (MAP) Pulse Ox O2 Delivery O2 Flow Rate FiO2 05/28/25 09:00 98.3 58 17 120/71 (87) 100 98.3 05/27/25 20:00 Room Air* 0 21 Physical Exam Gen: 54-year-old male in mild distress Skin: Warm, dry, pale, no rash. HEENT: Normocephalic atraumatic, mucous membranes moist and pink. Neck: Cervical and supraclavicular nodes normal without enlargement, trachea is midline, thyroid gland is normal without masses. Pulmonary: Clear to auscultation and percussion bilaterally. Cardiac: Regular rate and rhythm. No murmur Abdomen: Soft, nontender, nondistended, bowel sounds present all 4 quadrants, no guarding, no rigidity, no organomegaly. Extremities: No cyanosis, clubbing, no edema Neuro: Cranial nerves II through XII grossly intact, normal affect and speech, no focal motor deficits. Labs/Diagnostic Data Labs Test 05/28/25 05:03 05/27/25 10:04 05/27/25 05:01 05/26/25 19:42 Range/Units White Blood Count 7.8 # 4.4-10.8 10^3/uL Red Blood Count 3.69 L 4.5-5.90 10^6/uL Hemoglobin 7.2 L 13.5-17.5 g/dL Hematocrit 23.5 L 41.0-53.0 % Mean Corpuscular Volume 63.7 #L 80.0-100.0 fL Mean Corpuscular Hemoglobin 19.5 L 28.0-32.0 pg Mean Corpuscular Hemoglobin Concent 30.6 L 32.0-36.0 g/dL Red Cell Distribution Width 28.8 H 11.8-14.3 % Platelet Count 382 140-450 10^3/uL Mean Platelet Volume 8.1 6.9-10.8 fL Neutrophils (%) (Auto) 75.3 37.0-80.0 % Lymphocytes (%) (Auto) 19.1 10.0-50.0 % Monocytes (%) (Auto) 5.2 0.0-12.0 % Eosinophils (%) (Auto) 0.1 0.0-7.0 % Basophils (%) (Auto) 0.3 0.0-2.0 % Neutrophils # (Auto) 5.9 1.6-8.6 10 ^3/uL Lymphocytes # (Auto) 1.5 0.4-5.4 10 ^3/uL Monocytes # (Auto) 0.4 0-1.3 10 ^3/uL Eosinophils # (Auto) 0 0-0.8 10 ^3/uL Basophils # (Auto) 0 0-0.2 10 ^3/uL Nucleated Red Blood Cells 0.2 % Platelet Estimate Adequate Polychromasia Slight Hypochromasia (manual) Marked Anisocytosis (manual) Marked Microcytosis Marked Sodium Level 139 136-145 mmol/L Potassium Level 4.0 3.5-5.1 mmol/L Chloride Level 105 98-107 mmol/L Carbon Dioxide Level 24 20-31 mmol/L Anion Gap 10 5-15 Blood Urea Nitrogen 12 9-23 mg/dL Creatinine 0.93 0.700-1.30 mg/dL Glomerular Filtration Rate Calc 98 >90 mL/min BUN/Creatinine Ratio 12.9 10.0-20.0 Serum Glucose 107 H 74-106 mg/dL Calcium Level 9.3 8.7-10.4 mg/dL Urine Color Light-orange Yellow Urine Clarity Clear Clear Urine pH 6.0 5.0-9.0 Urine Specific [place] 1.031 1.001-1.035 Urine Protein Negative Negative Urine Ketones Negative Negative Urine Blood Negative Negative /uL Urine Nitrite Negative Negative Urine Bilirubin Negative Negative Urine Urobilinogen Normal Negative mg/dL Urine Leukocyte Esterase Negative Negative /uL Urine RBC 1 0 - 3 /hpf Urine Microscopic WBC 1 0-3 /HPF Urine Squamous Epithelial Cells None seen <5 /hpf Urine Bacteria None seen None Seen /hpf Urine Mucus Few None Seen Urine Glucose Normal Normal mg/dL Total Bilirubin 0.6 0.2-1.0 mg/dL Aspartate Amino Transferase (AST) 13 13-40 U/L Alanine Aminotransferase (ALT) 14 7-40 U/L Alkaline Phosphatase 72 46-116 U/L Total Protein 7.0 5.7-8.2 g/dL Albumin 4.1 3.2-4.8 g/dL Prothrombin Time 10.7 9.3-11.8 sec Prothrombin Time INR 1.01 0.9-1.15 Activated Partial Thromboplast Time 24.2 L 24.5-34.5 SEC Iron Level 11 L 65-175 ug/dL Total Iron Binding Capacity 340 250-425 ug/dL Percent Iron Saturation 3.2 L 20-55 % Test 05/26/25 15:02 Range/Units Troponin I High Sensitivity < 3 L </=54 ng/L CT SCAN ABD PELVIS IMPRESSION: 1. Circumferential bladder wall thickening and correlate with urinalysis for underlying acute versus chronic cystitis. 2. Large hiatal hernia with presumed underlying gastritis. Problems(with codes): (1) Large hiatal hernia (2) Symptomatic anemia (3) Near syncope Plan/Recommendation Plan Transfuse 2 units PRBC Start IV iron IV Protonix 40 mg q.12 hours I will schedule him for an endoscopy to rule out peptic ulcer disease evaluate hiatal hernia Elective colonoscopy for colon cancer screening has been advised Avoid aspirin NSAIDs Plan discussed with: Patient MARIELOS JAIMES MD May 28, 2025 10:08
[2025-05-28 13:00] VITALS: BP 122/86; PULSE 69; RESP 18; TEMP 98.1; O2SAT 99
[2025-05-28] MEDS ORDERED: NYS5LQ MT (14:00)
[2025-05-28] MEDS ORDERED: FER325T PO (14:02)
[2025-05-28] MEDS ORDERED: FOLI-119 PO (14:02)
--- NOTE | 2025-05-28 14:03 | DVHDS2 ---
Discharge Summary Date of Admission May 26, 2025 at 19:27 Date of Discharge: May 28, 2025 Labs/Diagnostic Data: Laboratory Results Test 05/28/25 10:37 05/28/25 05:03 05/27/25 10:04 05/27/25 05:01 HIV (1&2) Antibody Negative (Negative) White Blood Count 7.8 10^3/uL (4.4-10.8) Red Blood Count 3.69 10^6/uL (4.5-5.90) Hemoglobin 7.2 g/dL (13.5-17.5) Hematocrit 23.5 % (41.0-53.0) Mean Corpuscular Volume 63.7 fL (80.0-100.0) Mean Corpuscular Hemoglobin 19.5 pg (28.0-32.0) Mean Corpuscular Hemoglobin Concent 30.6 g/dL (32.0-36.0) Red Cell Distribution Width 28.8 % (11.8-14.3) Platelet Count 382 10^3/uL (140-450) Mean Platelet Volume 8.1 fL (6.9-10.8) Neutrophils (%) (Auto) 75.3 % (37.0-80.0) Lymphocytes (%) (Auto) 19.1 % (10.0-50.0) Monocytes (%) (Auto) 5.2 % (0.0-12.0) Eosinophils (%) (Auto) 0.1 % (0.0-7.0) Basophils (%) (Auto) 0.3 % (0.0-2.0) Neutrophils # (Auto) 5.9 10 ^3/uL (1.6-8.6) Lymphocytes # (Auto) 1.5 10 ^3/uL (0.4-5.4) Monocytes # (Auto) 0.4 10 ^3/uL (0-1.3) Eosinophils # (Auto) 0 10 ^3/uL (0-0.8) Basophils # (Auto) 0 10 ^3/uL (0-0.2) Nucleated Red Blood Cells 0.2 % Platelet Estimate Adequate Polychromasia Slight Hypochromasia (manual) Marked Anisocytosis (manual) Marked Microcytosis Marked Sodium Level 139 mmol/L (136-145) Potassium Level 4.0 mmol/L (3.5-5.1) Chloride Level 105 mmol/L (98-107) Carbon Dioxide Level 24 mmol/L (20-31) Anion Gap 10 (5-15) Blood Urea Nitrogen 12 mg/dL (9-23) Creatinine 0.93 mg/dL (0.700-1.30) Glomerular Filtration Rate Calc 98 mL/min (>90) BUN/Creatinine Ratio 12.9 (10.0-20.0) Serum Glucose 107 mg/dL (74-106) Calcium Level 9.3 mg/dL (8.7-10.4) Urine Color Light-orange (Yellow) Urine Clarity Clear (Clear) Urine pH 6.0 (5.0-9.0) Urine Specific [place] 1.031 (1.001-1.035) Urine Protein Negative (Negative) Urine Ketones Negative (Negative) Urine Blood Negative /uL (Negative) Urine Nitrite Negative (Negative) Urine Bilirubin Negative (Negative) Urine Urobilinogen Normal mg/dL (Negative) Urine Leukocyte Esterase Negative /uL (Negative) Urine RBC 1 /hpf (0 - 3) Urine Microscopic WBC 1 /HPF (0-3) Urine Squamous Epithelial Cells None seen /hpf (<5) Urine Bacteria None seen /hpf (None Seen) Urine Mucus Few (None Seen) Urine Glucose Normal mg/dL (Normal) Total Bilirubin 0.6 mg/dL (0.2-1.0) Aspartate Amino Transferase (AST) 13 U/L (13-40) Alanine Aminotransferase (ALT) 14 U/L (7-40) Alkaline Phosphatase 72 U/L (46-116) Total Protein 7.0 g/dL (5.7-8.2) Albumin 4.1 g/dL (3.2-4.8) Test 05/26/25 19:42 05/26/25 15:02 Prothrombin Time 10.7 sec (9.3-11.8) Prothrombin Time INR 1.01 (0.9-1.15) Activated Partial Thromboplast Time 24.2 SEC (24.5-34.5) Iron Level 11 ug/dL (65-175) Total Iron Binding Capacity 340 ug/dL (250-425) Percent Iron Saturation 3.2 % (20-55) Troponin I High Sensitivity < 3 ng/L (</=54) Other Laboratory Tests 05/28/25 05:03 Brief Hx & Hospital Course: 54-year-old male presents for evaluation of shortness for breath. Patient reports a one week history of worsening shortness for breath with associated dizziness, chest pressure and pale skin. He was seen at urgent care today and was advised to present to the emergency department due to a hemoglobin level of 6.5. He reports that three weeks ago he had an episode of dark colored stool which subsided. Patient is currently not taking any medications. No other acute complaints reported Past Medical History Anemia 05/27: Patient came in with dizziness, was recently in urgent Care found to be anemic. In ED hemoglobin 5.7. Pending stool occult blood, ferritin 11 severely low, we will give Venofer, p.o. ferrous sulfate thereafter. GI consulted. Continue Protonix IV 40 b.i.d., GI to follow up,. Patient getting 2 units blood we will follow up with the hemoglobin thereafter. GI see the patient, to EGD today.. Patient for care consult for. Insurance. Defer diet after procedure to GI, we will continue follow up thereafter. Diagnosis: Acute blood loss anemia Severe anemia Iron-deficiency anemia Stacy esophagitis , moderate to severe Sliding hiatal hernia with paraesophageal component Superficial gastritis Plan: -Protonix 40 daily - folic acid 1 mg daily for 30 days -ferrous sulfate RN 325 mg every other day for 1 month. -Nystatin swish and swallow 5 mL p.o. 4 times daily, do this for 2 weeks -Full liquid diet 1 week, thereafter advanced to soft mechanical -Stop aspirin, NSAIDs, alcohol, smoking - PCP to refer to GI as urgent consult, GI we will discuss colonoscopy in urgent matter. - one-week DC clinic follow up, repeat CBC - close follow up with PCP, set up insurance Condition at Discharge: Fair Final Diagnosis/Problems List Acute blood loss anemia Severe anemia Iron-deficiency anemia Stacy esophagitis , moderate to severe Sliding hiatal hernia with paraesophageal component Superficial gastritis Discharge Disposition: Home Discharge Instruct/Medications Scheduled Pantoprazole Sodium Sesquihydr (Protonix), 40 MG PO DAILY, (Reported) Discharge Statement: "Patient was advised to return to the ER or call 911 if any headaches, dizziness, shortness of breath, chest pain, abdominal pain, bleeding, fevers, or worsening of medical condition. Patient was counseled about treatment plan, medications, possible side effects, patientverbalized understanding. All questions were answered to the best of my ability. This discharge took greater then 30 minutes in planning, reviewing documentation, counseling the patient, and discussing with other team members." ASSESSMENT ASSESSMENT Assessment Date of Service: May 28, 2025 Billing Provider: XAVIER INFANTE MD Common Visit Codes: 90906-ARX/OBS DISCH DAY >30min XAVIER INFANTE MD May 28, 2025 14:03
[2025-05-28 15:05] VITALS: TEMP 36.7
== END 2025-05-28 15:50 | disposition home or self-care (01) | DRG 812 ==
LOC: ER 11:37 → OVERFLOW 19:27 → CENTRAL 22:30
PROVIDERS: ADMIT Student in an Organized Health Care Education/Training Program; ATTEND Student in an Organized Health Care Education/Training Program
PROC: 30233N1 Transfusion of Nonautologous Red Blood Cells into Peripheral Vein, Percutaneous Approach (ICD-10-PCS; principal; 2025-05-26)
PROC: 0DB98ZX Excision of Duodenum, Via Natural or Artificial Opening Endoscopic, Diagnostic (ICD-10-PCS; 2025-05-27)
PROC: 0DB68ZX Excision of Stomach, Via Natural or Artificial Opening Endoscopic, Diagnostic (ICD-10-PCS; 2025-05-27)
PROC: 0DB48ZX Excision of Esophagogastric Junction, Via Natural or Artificial Opening Endoscopic, Diagnostic (ICD-10-PCS; 2025-05-27)
DX: D62 Acute posthemorrhagic anemia (principal); B37.81 Candidal esophagitis; K44.9 Diaphragmatic hernia without obstruction or gangrene; K29.70 Gastritis, unspecified, without bleeding; R55 Syncope and collapse; Z82.62 Family history of osteoporosis
CPT/HCPCS: 36415; 43239; 71045; 74177; 80048; 80053; 81001; 83540; 83550; 84484; 85014; 85018; 85025; 85610; 85730; 86703; 86850; 86900; 86901; 86920; 93005; 99291; G0378; J1100; J1756; J2250; J2470; J2704; J7060